=== PATIENT | female | born 1990 | race African-American/Black ===

== ENCOUNTER 2017-01-01 16:20 | Inpatient (IN) ==
[2017-01-01 17:17] LABS: Basophils % 0.3 % (0.0-0.8); Eosinophils % 0.3 % (0.00-10.9); Hematocrit 31.6 VOL% (35.7-47.0); Hemoglobin 11.2 GM/DL (12.0-16.0); Immature Granulocytes % 0.1 %; Immature Granulocytes Absolute 0.01 #; Lymphocytes # 2.6 10*3/uL (1.4-4.0); Lymphocytes % 38.6 % (21.3-54.2); Mean Corpuscular HGB Conc 35.4 GM/DL (32-36); Mean Corpuscular Hemoglobin 32 PG (27-34); Mean Platelet Volume 11.1 FL (9.6-12.0); Monocytes # 0.5 10*3/uL (0.11-0.8); Monocytes % 6.6 % (1.7-12.7); Neutrophils # 3.7 10*3/uL (1.4-7.4); Neutrophils % 54.1 % (38.7-73.9); Platelet Count 209 T/CUMM (130-400); Red Blood Count 3.55 MC/CUMM (3.8-5.5); Red Cell Distribution Width 14.1 % (9.3-17.3); White Blood Count 6.8 T/CUMM (4-12)
[2017-01-01] MEDS ORDERED: hydrALAZINE 20 MG/1 ML VIAL IV PRN (17:26)
[2017-01-01 17:28] LABS: INR 0.9; PT Patient Result 9.8 SECS; Partial Thromboplastin Time 30.5 SECS (0-40)
[2017-01-01 17:39] LABS: Alanine Aminotransferase 11 U/L (13-56); Albumin 2.5 G/DL (3.4-5.0); Alkaline Phosphatase 135 U/L (45-117); Aspartate Amino Transferase 10 U/L (0-37); Bilirubin,Total < 0.39 MG/DL (0.2-1.0); Blood Urea Nitrogen 5 MG/DL (7-18); Glucose 91 MG/DL (74-106); Osmolality,Calculated 277.3 MOS/KG (273-304); Potassium 3.3 MMOL/L (3.5-5.1); Sodium 141 MMOL/L (136-145); Total Protein 5.8 G/DL (6.4-8.3); Uric Acid 3.5 MG/DL (2.6-6.0)
[2017-01-01] MEDS: LACTATED RINGERS 1,000 ML IV SCH (17:40)
[2017-01-01] MEDS: hydrALAZINE 20 MG/1 ML VIAL IV PRN ×2 (17:41→18:23)
--- NOTE | 2017-01-01 17:44 | OB/GYN History & Physical ---
History of Present Illness Chief complaint: Abdominal discomfort, -induced hypertension History of present illness: Ms. Romo is a 26 year old female 4 para 3 her EDC is January 14, 2017 was evaluated at the [facility] with elevation of her blood pressure. On admission to [facility] [address] was 150s over 90s. She denies any right upper quadrant pain headaches or blurred vision. has been limited patient has been seen in [facility] and also [place]. Limited records are available. On this particular admission because of her elevation of her blood pressure and headaches this patient be admitted for PIH labs. Will be started on labetalol. And also initiated with IV Apresoline to lower blood pressure. This patient since she is a previous at 38weeks and 3 days we will plan on a repeat section. 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 - Constitutional General appearance: mild distress - Antepartum / Post Antepartum Exam Cervix - Dilatation: Long thick and closed - Head Head exam: Present: normal inspection - Eye Eye exam: Present: EOMI Pupils: Present: KIARRA - ENT ENT exam: Present: normal exam - Neck Neck exam: Present: normal inspection - Respiratory Respiratory exam: Present: clear to auscultation bilaterally - Breast Breasts: as per HPI Menstruation: as per HPI - Cardiovascular Cardiovascular exam: Present: regular rate and rhythm - GI/Abdominal GI/Abdominal exam: Present: normal bowel sounds, other (Positive heart tones.) - Extremities Exam Extremities exam: Present: normal inspection - Back Exam Back exam: Present: normal inspection - Neurological Exam Neurological exam: Present: alert, oriented X3 - Psychiatric Psychiatric exam: Present: normal affect - Skin Skin exam: Present: normal color Assessment and Plan (1) induced hypertension Status: Acute Assessment and plan: Previous section, associated with preeclampsia. Will obtain PIH labs. Initiate IV Apresoline. And also start this patient on labetalol. We will gather further information since this patient with limited care and assess her in the a.m. Possibility of a repeat section was discussed since her last was associated with a previous section secondary to PIH. Thanks for my dictation Current Visit: Yes Results - Labs CBC & BMP: 01/01/17 17:07
--- NOTE | 2017-01-01 17:49 | Ultrasound Report ---
OB ultrasound complete. Indication: Hypertension. Limited care. No previous study. There is a single intrauterine gestation in a cephalic presentation. The placenta is located posterior. There is no evidence of placenta previa. There is a three-vessel cord. There is a normal appearing cord insertion. There is a four-chamber heart. The spine, stomach bubble, kidneys, bladder appear normal. The face is not well visualized. The intracranial contents are unremarkable. The amniotic fluid volume is normal with an COLIN of 12 cm. The heart rate is 128 bpm. The maternal ovaries are not visible due to the size of the uterus. Probable diameter-9.2 cm Head circumference-33.6 cm Abdominal circumference-33.9 cm Femur length-7.2 cm. Composite gestational age, 37 weeks 5 days with an EDC of January 17, 2017. Estimated weight, 7 lbs. 3 oz. Growth percentile, 50%. Impression: Viable 37 week 5 day IUP. No abnormality is seen at this time. PROCEDURE INTERPRETED AT [facility] DEPARTMENT OF RADIOLOGY Final Report Signed by: Dr. Deanne Clinton
[2017-01-01 17:59] LABS: Rubella Antibody IgG 498.5 IU/ML
[2017-01-01] MEDS ORDERED: LABETALOL 100 MG TABLET PO ONE (18:09)
[2017-01-01 18:27] LABS: HIV Antigen/Antibody Result Nonreactive (Nonreactive); Hepatitis B Surface Ag Quant < 0.10 Index; Hepatitis B Surface Ag Result Negative (Negative)
[2017-01-01 19:11] LABS: Apearance,Urine CLOUDY (Clear); Bacteria,Urine Occasional /HPF (Few); Bilirubin,Urine Negative (Negative); Blood, Urine Negative (Negative); Glucose,Urine (UA) Negative (Negative); Ketones,Urine Negative (Negative); Mucus,Urine Occasional /LPF (Occasional); Nitrite,Urine Negative (Negative); Protein,Urine Negative; RBC,Urine 2 /HPF (0-4); Squamous Epithelial Cell,Urine Moderate /HPF (0-10); Urine Color Yellow (Yellow); Urine Urobilinogen < 2.0 EU/DL (0.2-1.0); WBC,Urine 7 /HPF (0-6)
[2017-01-01 19:24] LABS: Barbiturates Screen,Urine Negative (Negative); Benzodiazepines Screen,Urine Negative (Negative); Cannabinoid Screen,Urine Negative (Negative); Opiate Screen,Urine Negative (Negative); Phencyclidine Screen,Urine Negative (Negative)
[2017-01-01] MEDS: LABETALOL 100 MG TABLET PO SCH (21:06)
[2017-01-01] MEDS ORDERED: ZALEPLON 5 MG CAPSULE PO ONE (22:59)
[2017-01-01] MEDS ORDERED: ACETAMINOPHEN 500 MG TABLET PO PRN (22:59)
[2017-01-02] MEDS: LACTATED RINGERS 1,000 ML IV SCH ×4 (02:37→22:45)
[2017-01-02] MEDS ORDERED: CITRIC ACID/SODIUM CITRATE 30 ML UDCUP PO ONE (07:30)
[2017-01-02] MEDS ORDERED: ceFAZolin 2,000 MG in PREMIX 1 EACH IV ONE (07:30)
[2017-01-02] MEDS ORDERED: FAMOTIDINE 20 MG/2 ML VIAL IV ONE (07:30)
[2017-01-02 07:44] LABS: Basophils % 0.3 % (0.0-0.8); Eosinophils % 0.3 % (0.00-10.9); Hematocrit 31.7 VOL% (35.7-47.0); Hemoglobin 11.4 GM/DL (12.0-16.0); Immature Granulocytes % 0.3 %; Immature Granulocytes Absolute 0.02 #; Lymphocytes # 3.2 10*3/uL (1.4-4.0); Lymphocytes % 40.1 % (21.3-54.2); Mean Corpuscular Hemoglobin 32 PG (27-34); Mean Corpuscular Volume 87.6 FL (87-102); Monocytes # 0.5 10*3/uL (0.11-0.8); Monocytes % 6.7 % (1.7-12.7); Neutrophils # 4.2 10*3/uL (1.4-7.4); Neutrophils % 52.3 % (38.7-73.9); Platelet Count 214 T/CUMM (130-400); Red Blood Count 3.62 MC/CUMM (3.8-5.5); Red Cell Distribution Width 14.2 % (9.3-17.3); White Blood Count 7.9 T/CUMM (4-12)
[2017-01-02 07:55] LABS: INR 0.9; PT Patient Result 9.5 SECS
[2017-01-02 08:16] LABS: Alanine Aminotransferase 10 U/L (13-56); Albumin 2.5 G/DL (3.4-5.0); Alkaline Phosphatase 147 U/L (45-117); Aspartate Amino Transferase 12 U/L (0-37); Bilirubin,Total < 0.39 MG/DL (0.2-1.0); Blood Urea Nitrogen 5 MG/DL (7-18); Calcium 8.6 MG/DL (8.5-10.1); Glucose 81 MG/DL (74-106); Osmolality,Calculated 278.1 MOS/KG (273-304); Potassium 3.4 MMOL/L (3.5-5.1); Sodium 142 MMOL/L (136-145); Total Protein 5.9 G/DL (6.4-8.3)
[2017-01-02] MEDS ORDERED: OXYTOCIN 10 UNIT/ML VIAL ONE (09:46)
[2017-01-02] MEDS ORDERED: OXYTOCIN/LR 30 UNIT/1,000 ML BAG IV ONE (09:48)
[2017-01-02] MEDS ORDERED: PHENYLEPHRINE 1 MG/10 ML SYRINGE IV ONE (10:20)
[2017-01-02] MEDS ORDERED: ONDANSETRON 4 MG/2 ML VIAL ONE (10:20)
[2017-01-02] MEDS ORDERED: RHO(D) IMMUNE GLOBULIN 300 MCG SYRINGE IM ONE (11:11)
[2017-01-02] MEDS ORDERED: ONDANSETRON 4 MG/2 ML VIAL IV PRN (11:11)
[2017-01-02] MEDS ORDERED: ACETAMINOPHEN 325 MG TABLET PO PRN (11:11)
[2017-01-02] MEDS ORDERED: OXYTOCIN/LR 20 UNIT/1,000 ML BAG IV ONE (11:11)
--- NOTE | 2017-01-02 11:11 | Operative Note ---
Date of procedure: 01/02/17 Procedure: Preoperative diagnosis: PIH, 38 weeks and 3 days Postoperative diagnosis: Same Anesthesia:[] Regional anesthesia Estimated blood loss: [] Less than 300 Surgeon: Dr. Holland Findings: [] Live born at 10:51 AM, female, 6 lbs. 11 oz., Apgars was 9 at 1 minute 9 at 5 minutes Complications: None Procedure: Low transverse section The patient was taken to the operating suite heart tones were obtained prior to and after regional anesthesia was obtained. She was placed in supine position her abdomen was prepped and draped in usual manner for major abdominal surgery. Through an abdominal incision the skin, subcutaneous, fascial layer and peritoneal the abdomen was entered. The bladder flap was created and a low transverse incision was made.. Fluid was clear and normal amount X, Apgars, the placenta was delivered and sent to lab for further evaluation. Injected with intrauterine Pitocin. The first layer of the uterus was closed with #1 Vicryl in a continuous locking manner. Close to imbricate the first layer with #1 Vicryl. The peritoneum was approximated with #2-0 Vicryl.[] All the last sponges and instruments were accounted for -2.) #2-0 Vicryl. Fascia was approximated with #0-0 Maxon.. The skin was approximated with jabier. She tolerated procedure well and was taken to recovery room in stable condition. Surgeon / Physician: Reyna Holland Results - Labs CBC & BMP: 01/02/17 07:29 01/02/17 07:29 Discharge Plan - Discharge Medications No Action Vit No.124/Iron/Folic [ Vitamin Tablet] 1 tablet PO DAILY - Follow Up or Referral - Forms/Instructions
[2017-01-02] MEDS ORDERED: MORPHINE 10 MG/10 ML VIAL ONE (11:21)
[2017-01-02] MEDS ORDERED: fentaNYL 100 MCG/2 ML VIAL ONE (11:21)
[2017-01-02 11:27] LABS: Cord Arterial Blood HCO3 19.9 MMOL/L
[2017-01-02 11:30] LABS: Cord Venous Blood HCO3 20.5 MMOL/L; Cord Venous Blood PCO2 40.7 MMHG; Cord Venous Blood PO2 30.2
[2017-01-02 12:00] LABS: Apearance,Urine CLEAR (Clear); Bilirubin,Urine Negative (Negative); Blood, Urine Negative (Negative); Glucose,Urine (UA) Negative (Negative); Ketones,Urine Negative (Negative); Mucus,Urine Occasional /LPF (Occasional); Nitrite,Urine Negative (Negative); Protein,Urine Negative; RBC,Urine <1 /HPF (0-4); Squamous Epithelial Cell,Urine Occasional /HPF (0-10); Urine Color Yellow (Yellow); Urine Specific Gravity 1.013 (1.001-1.035); WBC,Urine 1 /HPF (0-6)
[2017-01-02] MEDS: hydrALAZINE 25 MG TABLET PO SCH ×3 (12:33→23:59)
[2017-01-02] MEDS: LABETALOL 100 MG TABLET PO SCH (12:39)
[2017-01-02] MEDS ORDERED: hydrOXYzine HCL 25 MG/1 ML VIAL IM PRN ×2 (12:56→16:04)
[2017-01-02] MEDS ORDERED: diphenhydrAMINE 50 MG/1 ML VIAL IV PRN (12:56)
[2017-01-02] MEDS: HYDROmorphone 2 MG/1 ML VIAL IV PRN ×2 (15:10→21:16)
[2017-01-02 19:13] LABS: Basophils % 0.1 % (0.0-0.8); Eosinophils % 0.1 % (0.00-10.9); Hemoglobin 11.8 GM/DL (12.0-16.0); Immature Granulocytes % 0.4 %; Immature Granulocytes Absolute 0.05 #; Lymphocytes % 26.2 % (21.3-54.2); Mean Corpuscular HGB Conc 35.8 GM/DL (32-36); Mean Corpuscular Hemoglobin 32 PG (27-34); Mean Corpuscular Volume 88.2 FL (87-102); Mean Platelet Volume 11.2 FL (9.6-12.0); Monocytes # 0.5 10*3/uL (0.11-0.8); Monocytes % 4.5 % (1.7-12.7); Neutrophils # 7.9 10*3/uL (1.4-7.4); Neutrophils % 68.7 % (38.7-73.9); Platelet Count 199 T/CUMM (130-400); Red Blood Count 3.74 MC/CUMM (3.8-5.5); Red Cell Distribution Width 13.8 % (9.3-17.3); White Blood Count 11.5 T/CUMM (4-12)
[2017-01-02] MEDS: DOCUSATE SODIUM 100 MG CAPSULE PO SCH (21:16)
[2017-01-03] MEDS: HYDROmorphone 2 MG/1 ML VIAL IV PRN (02:07)
[2017-01-03] MEDS: hydrALAZINE 25 MG TABLET PO SCH ×3 (06:10→17:54)
[2017-01-03 06:42] LABS: Basophils % 0.2 % (0.0-0.8); Eosinophils % 0.4 % (0.00-10.9); Hemoglobin 10.9 GM/DL (12.0-16.0); Immature Granulocytes % 0.3 %; Immature Granulocytes Absolute 0.03 #; Lymphocytes # 2.8 10*3/uL (1.4-4.0); Lymphocytes % 30.5 % (21.3-54.2); Mean Corpuscular HGB Conc 35.2 GM/DL (32-36); Mean Corpuscular Hemoglobin 31 PG (27-34); Mean Corpuscular Volume 89.1 FL (87-102); Monocytes # 0.7 10*3/uL (0.11-0.8); Monocytes % 7.3 % (1.7-12.7); Neutrophils # 5.6 10*3/uL (1.4-7.4); Neutrophils % 61.3 % (38.7-73.9); Platelet Count 172 T/CUMM (130-400); Red Blood Count 3.48 MC/CUMM (3.8-5.5); Red Cell Distribution Width 14.1 % (9.3-17.3); White Blood Count 9.1 T/CUMM (4-12)
[2017-01-03] MEDS: SIMETHICONE CHEW 80 MG TABLET PO PRN (08:45)
[2017-01-03] MEDS: MAGNESIUM HYDROXIDE SUSP 30 ML UDCUP PO PRN (08:45)
[2017-01-03] MEDS: MULTIVITAMIN (PRENATAL) TABLET PO SCH (08:45)
[2017-01-03] MEDS: DOCUSATE SODIUM 100 MG CAPSULE PO SCH ×2 (08:45→21:59)
[2017-01-03] MEDS: IBUPROFEN 800 MG TABLET PO PRN (09:17)
--- NOTE | 2017-01-03 12:45 | OB/GYN Progress Note ---
Assessment and Plan (1) S/P repeat low transverse Status: Acute Assessment and plan: Initiate routine post op orders. 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 Bonding well with infant. 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 - Constitutional Vitals: Vital Signs Temp Pulse Resp BP Pulse Ox 01/03/17 07:41 97.8 F 72 20 149/75 98 01/03/17 06:10 20 01/03/17 04:08 98.3 F 81 20 143/89 97 01/02/17 23:59 98.5 F 78 18 148/89 96 01/02/17 19:35 97.6 F 80 20 126/69 96 01/02/17 17:56 75 20 162/91 99 01/02/17 17:00 67 20 150/89 99 01/02/17 16:00 97.8 F 67 20 149/93 99 01/02/17 15:30 69 20 152/85 99 01/02/17 15:00 97.8 F 69 20 161/86 99 General appearance: no acute distress - Antepartum / Post Post Exam Breast: bilateral: normal Abdomen obstetrics: Present: bowel sounds normal Vagina: Present: normal moisture, discharge (Light lochia rubra) Uterus exam: Present: enlarged (Fundus firm and midline) Anus/Rectum: Present: normal perianal skin - Gyencological / Post Surgical Post Surgical Exam Lungs: bilateral: normal Chest: Normal S1, Normal S2 Extremities EMBOSSING TOOL SETTER: Present: normal Abdomen obstetrics progress note: Present: normal appearance Incision OB: Present: normal, intact - Respiratory Respiratory exam: Present: clear to auscultation bilaterally - Cardiovascular Cardiovascular exam: Present: regular rate and rhythm - GI/Abdominal GI/Abdominal exam: Present: normal bowel sounds, soft - Extremities Exam Extremities exam: Present: normal inspection - Back Exam Back exam: Present: normal inspection - Neurological Exam Neurological exam: Present: alert, oriented X3 - Psychiatric Psychiatric exam: Present: normal affect, normal mood - Skin Skin exam: Present: normal color, warm Results - Labs CBC & BMP: 01/03/17 06:15 01/02/17 07:29
[2017-01-03] MEDS: CIPROFLOXACIN 500 MG TABLET PO SCH ×2 (12:58→21:59)
[2017-01-04] MEDS: IBUPROFEN 800 MG TABLET PO PRN ×3 (00:09→21:05)
[2017-01-04] MEDS: hydrALAZINE 25 MG TABLET PO SCH ×4 (00:09→17:35)
[2017-01-04] MEDS: MULTIVITAMIN (PRENATAL) TABLET PO SCH (08:31)
[2017-01-04] MEDS: CIPROFLOXACIN 500 MG TABLET PO SCH ×2 (08:31→21:05)
[2017-01-04] MEDS: DOCUSATE SODIUM 100 MG CAPSULE PO SCH ×2 (08:31→21:05)
[2017-01-04] MEDS: MAGNESIUM HYDROXIDE SUSP 30 ML UDCUP PO PRN ×2 (08:32→21:05)
--- NOTE | 2017-01-04 10:03 | OB/GYN Progress Note ---
Assessment and Plan (1) S/P repeat low transverse Status: Acute Assessment and plan: Initiate routine post op orders. 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 Occasional complaints of incisional pain. 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 - Constitutional Vitals: Vital Signs Temp Pulse Resp BP Pulse Ox 01/04/17 08:00 97.2 F L 91 H 20 142/86 98 01/04/17 07:55 20 01/04/17 05:25 18 01/04/17 03:55 97.6 F 81 18 146/65 96 01/04/17 02:00 18 01/04/17 00:00 97.4 F L 90 18 157/92 96 01/03/17 20:00 97.9 F 95 H 20 151/93 97 01/03/17 15:38 97.5 F L 79 20 143/78 96 01/03/17 12:00 97.9 F 88 20 158/88 98 General appearance: no acute distress - Antepartum / Post Post Exam Breast: bilateral: normal Abdomen obstetrics: Present: bowel sounds normal Vagina: Present: normal moisture, discharge (Light lochia rubra) Uterus exam: Present: enlarged (Fundus firm and midline) - Gyencological / Post Surgical Post Surgical Exam Lungs: bilateral: normal Chest: Normal S1, Normal S2 Extremities RACEBOOK WRITER: Present: normal Abdomen obstetrics progress note: Present: normal appearance Incision OB: Present: normal, intact - Respiratory Respiratory exam: Present: clear to auscultation bilaterally - Cardiovascular Cardiovascular exam: Present: regular rate and rhythm - GI/Abdominal GI/Abdominal exam: Present: normal bowel sounds, soft - Extremities Exam Extremities exam: Present: normal inspection - Back Exam Back exam: Present: normal inspection - Neurological Exam Neurological exam: Present: alert, oriented X3 - Psychiatric Psychiatric exam: Present: normal affect, normal mood - Skin Skin exam: Present: normal color, warm Results - Labs CBC & BMP: 01/03/17 06:15 01/02/17 07:29
[2017-01-05] MEDS: hydrALAZINE 25 MG TABLET PO SCH ×2 (00:30→06:12)
[2017-01-05] MEDS: LACTATED RINGERS 1,000 ML IV SCH (06:13)
[2017-01-05] MEDS: DOCUSATE SODIUM 100 MG CAPSULE PO SCH (08:46)
[2017-01-05] MEDS: MULTIVITAMIN (PRENATAL) TABLET PO SCH (08:47)
[2017-01-05] MEDS: SIMETHICONE CHEW 80 MG TABLET PO PRN (08:47)
[2017-01-05] MEDS: IBUPROFEN 800 MG TABLET PO PRN (08:47)
[2017-01-05] MEDS: MAGNESIUM HYDROXIDE SUSP 30 ML UDCUP PO PRN (08:47)
[2017-01-05] MEDS: CIPROFLOXACIN 500 MG TABLET PO SCH (08:47)
[2017-01-05] MEDS ORDERED: DIPH/TET/ACEL PERT BOOSTER VACCINE 0.5 ML VIAL IM ONE (10:59)
[2017-01-05 17:20] VITALS: BP 150/93
== END 2017-01-05 15:50 | disposition home or self-care (01) | DRG 540 ==
LOC: N.LDOUT 16:20 → N.LD 16:31 → N.OB 01-02 15:00
PROVIDERS: ADMIT Obstetrics & Gynecology; ATTEND Obstetrics & Gynecology
PROC: LDCSECT (ICD-10-PCS; 2017-01-02 09:00)

== ENCOUNTER 2018-04-22 03:26 | Inpatient (IN) ==
[2018-04-22] MEDS ORDERED: ONDANSETRON 4 MG/2 ML VIAL IV PRN ×2 (03:34→05:11)
[2018-04-22] MEDS ORDERED: BUTORPHANOL 2 MG/ML VIAL IV PRN (03:41)
[2018-04-22] MEDS: LACTATED RINGERS 1,000 ML IV SCH ×3 (03:42→19:54)
[2018-04-22] MEDS ORDERED: CITRIC ACID/SODIUM CITRATE 30 ML UDCUP PO ONE (03:43)
[2018-04-22] MEDS ORDERED: FAMOTIDINE 20 MG/2 ML VIAL IV ONE (03:43)
[2018-04-22] MEDS ORDERED: ceFAZolin 2,000 MG in PREMIX 1 EACH IV ONE (03:44)
[2018-04-22] MEDS ORDERED: TERBUTALINE 1 MG/1 ML VIAL SUBCUT ONE ×2 (03:52→04:04)
[2018-04-22 04:05] LABS: Basophils % 0.2 % (0.0-0.8); Eosinophils # 0.1 10*3/uL (0.0-0.87); Eosinophils % 0.6 % (0.00-10.9); Hematocrit 34.2 VOL% (35.7-47.0); Immature Granulocytes % 0.4 %; Immature Granulocytes Absolute 0.04 #; Lymphocytes # 3.4 10*3/uL (1.4-4.0); Lymphocytes % 35.7 % (21.3-54.2); Mean Corpuscular HGB Conc 35.1 GM/DL (32-36); Mean Corpuscular Hemoglobin 32 PG (27-34); Mean Platelet Volume 10.6 FL (9.6-12.0); Monocytes # 0.6 10*3/uL (0.11-0.8); Monocytes % 6.1 % (1.7-12.7); Neutrophils # 5.4 10*3/uL (1.4-7.4); Platelet Count 293 T/CUMM (130-400); Red Blood Count 3.76 MC/CUMM (3.8-5.5); Red Cell Distribution Width 12.8 % (9.3-17.3); White Blood Count 9.5 T/CUMM (4-12)
[2018-04-22] MEDS ORDERED: BUPIVACAINE SPINAL 0.75% 2 ML AMP SPINAL ONE (04:06)
[2018-04-22] MEDS ORDERED: PHENYLEPHRINE 1 MG/10 ML SYRINGE IV ONE (04:06)
[2018-04-22] MEDS ORDERED: MORPHINE 10 MG/10 ML VIAL ONE (04:06)
[2018-04-22 05:00] LABS: Apearance,Urine CLEAR (Clear); Bacteria,Urine Occasional /HPF (Few); Bilirubin,Urine Negative (Negative); Blood, Urine Large mg/dL (Negative); Glucose,Urine (UA) Negative (Negative); Ketones,Urine Negative (Negative); Mucus,Urine Occasional /LPF (Occasional); Nitrite,Urine Negative (Negative); Protein,Urine Negative; RBC,Urine 3 /HPF (0-4); Squamous Epithelial Cell,Urine Occasional /HPF (0-10); Urine Color Yellow (Yellow); Urine Specific Gravity 1.011 (1.001-1.035); Urine Urobilinogen < 2.0 EU/DL (0.2-1.0); WBC,Urine 1 /HPF (0-6)
[2018-04-22] MEDS ORDERED: BENZOCAINE 20%/MENTHOL 0.5% SPRAY 56 GM CAN TOP PRN (05:11)
[2018-04-22] MEDS ORDERED: oxyCODONE/ACETAMINOPHEN 5-325 MG TABLET PO PRN (05:11)
[2018-04-22] MEDS ORDERED: IBUPROFEN 800 MG TABLET PO PRN (05:11)
[2018-04-22] MEDS ORDERED: HYDROCORTISONE 2.5% RECTAL CREAM 30 GM TUBE TOP PRN (05:11)
[2018-04-22] MEDS ORDERED: LANOLIN 50% CREAM 0.3 OZ TUBE TOP PRN (05:11)
[2018-04-22] MEDS ORDERED: BISACODYL 10 MG SUPP RECTAL PRN (05:11)
[2018-04-22] MEDS ORDERED: WITCH HAZEL PADS 100/JAR TOP PRN (05:11)
[2018-04-22] MEDS ORDERED: OXYTOCIN/LR 20 UNIT/1,000 ML BAG IV ONE (05:11)
[2018-04-22] MEDS ORDERED: DIPH/TET/ACEL PERT BOOSTER VACCINE 0.5 ML VIAL IM ONE (05:11)
[2018-04-22] MEDS ORDERED: ACETAMINOPHEN 325 MG TABLET PO PRN (05:11)
[2018-04-22] MEDS ORDERED: RHO(D) IMMUNE GLOBULIN 300 MCG SYRINGE IM ONE (05:11)
[2018-04-22] MEDS ORDERED: MEASLES/MUMPS/RUBELLA VACCINE 0.5 ML VIAL SUBCUT ONE (05:11)
[2018-04-22] MEDS ORDERED: diphenhydrAMINE 50 MG/1 ML VIAL ONE (05:58)
[2018-04-22] MEDS ORDERED: diphenhydrAMINE 50 MG/1 ML VIAL IV ONE (06:02)
[2018-04-22] MEDS ORDERED: ePHEDrine 50 MG/ML AMP ONE (06:18)
[2018-04-22] MEDS ORDERED: HYDROmorphone 2 MG/1 ML VIAL IV PRN (08:17)
[2018-04-22] MEDS: diphenhydrAMINE 50 MG/1 ML VIAL IV PRN ×2 (10:00→22:17)
[2018-04-22] MEDS: ceFAZolin 1,000 MG in SYRINGE 1 EACH IV SCH ×2 (11:46→19:56)
[2018-04-22] MEDS: oxyCODONE/ACETAMINOPHEN 5-325 MG TABLET PO PRN (19:55)
[2018-04-22] MEDS: DOCUSATE SODIUM 100 MG CAPSULE PO SCH (23:24)
[2018-04-23 02:54] LABS: Basophils % 0.1 % (0.0-0.8); Eosinophils # 0.1 10*3/uL (0.0-0.87); Hematocrit 27.3 VOL% (35.7-47.0); Hemoglobin 9.6 GM/DL (12.0-16.0); Immature Granulocytes % 0.3 %; Immature Granulocytes Absolute 0.02 #; Lymphocytes # 1.7 10*3/uL (1.4-4.0); Lymphocytes % 21.1 % (21.3-54.2); Mean Corpuscular HGB Conc 35.2 GM/DL (32-36); Mean Corpuscular Hemoglobin 32 PG (27-34); Mean Corpuscular Volume 90.7 FL (87-102); Mean Platelet Volume 11.2 FL (9.6-12.0); Monocytes # 0.5 10*3/uL (0.11-0.8); Monocytes % 6.2 % (1.7-12.7); Neutrophils # 5.6 10*3/uL (1.4-7.4); Neutrophils % 71.3 % (38.7-73.9); Platelet Count 205 T/CUMM (130-400); Red Blood Count 3.01 MC/CUMM (3.8-5.5); Red Cell Distribution Width 12.7 % (9.3-17.3); White Blood Count 7.9 T/CUMM (4-12)
[2018-04-23 04:01] LABS: HIV Antigen/Antibody Result Nonreactive (Nonreactive); Hepatitis B Surface Ag Quant < 0.10 Index; Hepatitis B Surface Ag Result Negative (Negative); Rubella Antibody IgG > 500.0 IU/ML
[2018-04-23] MEDS: ceFAZolin 1,000 MG in SYRINGE 1 EACH IV SCH (04:29)
[2018-04-23] MEDS: oxyCODONE/ACETAMINOPHEN 5-325 MG TABLET PO PRN ×4 (04:33→20:18)
[2018-04-23] MEDS: DOCUSATE SODIUM 100 MG CAPSULE PO SCH ×2 (09:04→20:18)
[2018-04-24 07:29] VITALS: BP 129/82
[2018-04-24] MEDS ORDERED: MAGNESIUM HYDROXIDE SUSP 30 ML UDCUP PO PRN (08:21)
[2018-04-24] MEDS ORDERED: SIMETHICONE CHEW 80 MG TABLET PO PRN (08:21)
[2018-04-24] MEDS: oxyCODONE/ACETAMINOPHEN 5-325 MG TABLET PO PRN ×2 (08:38→13:41)
[2018-04-24] MEDS: DOCUSATE SODIUM 100 MG CAPSULE PO SCH (08:38)
[2018-04-24] MEDS ORDERED: INFLUENZA VIRUS VACCINE 0.5 ML SYRINGE IM ONE (09:47)
[2018-04-24] MEDS ORDERED: DIPH/TET/ACEL PERT BOOSTER VACCINE 0.5 ML VIAL IM ONE (09:48)
== END 2018-04-24 15:45 | disposition home or self-care (01) | DRG 766 ==
LOC: N.LDOUT 03:26 → N.LD 03:33 → N.OB 09:06
PROVIDERS: ADMIT Specialist; ATTEND Specialist
PROC: LDCSECT (ICD-10-PCS; 2018-04-22 04:00)